=== PATIENT | female | born 1960 | race Caucasian/White ===

== ENCOUNTER 2017-06-29 18:44 | Emergency (ER) | payer BC, OTHER ==
[2017-06-29 20:29] LABS: #Basophils 0.1 thou/uL (0.0-0.2); #Eosinphils 0.5 thou/uL (0.0-0.7); #Lymphocytes 3.6 thou/uL (1.20-3.40); #Monocytes 0.6 thou/uL (0.11-0.59); %Basophils 1.5 % (0.0-1.0); %Eosinophils 4.8 % (0.0-10.0); %Lymphocytes 36.4 % (21.0-51.0); %Monocytes 6.4 % (0.0-10.0); Hematocrit 41.1 % (36.0-47.0); Mean Platelet Volume 7.7 fL (7.4-10.4); Red Blood Cell (RBC) Count 4.04 mill/uL (4.20-5.40); White Blood Cell (WBC) Count 9.9 thou/uL (4.8-10.8)
[2017-06-29 20:53] LABS: ALT (SGPT) 17 U/L (8-55); AST (SGOT) 21 U/L (5-34); Alkaline Phosphatase 84 U/L (40-150); Anion Gap 15 mmol/L (10-20); BUN (Urea Nitrogen) 15 mg/dL (9.8-20.1); Bilirubin, Total 0.2 mg/dL (0.2-1.2); Calc. Creatinine Clearance 0 mL/min (70-130); Calcium 9.6 mg/dL (7.8-10.44); Carbon Dioxide 22 mmol/L (22-29); Chloride 106 mmol/L (98-107); Estimated GFR-MDRD 82; Lipase 27 U/L (8-78); Protein, Total 7.1 g/dL (6.0-8.3)
[2017-06-29 20:57] LABS: Troponin I Less than 0.010 ng/mL (< 0.028)
--- NOTE | 2017-06-29 20:59 | CT ---
NONCONTRAST CT HEAD: Date: 06-29-17 History: Confusion after falling and hitting head. Comparison: None. FINDINGS: There is no evidence of a hemorrhage, acute infarction, mass effect or midline shift. Ventricular sy stem is normal in size, shape, and position. There is a low density focus seen in the medial right t emporal lobe likely related to a very tiny neurenteric cyst. Ventricular system is normal in size, s hape, and position. There is minimal mucosal thickening seen in the left sphenoid sinus. Calvarial structures are intact without evidence of a fracture. IMPRESSION: 1. No acute intracranial abnormalities demonstrated. 2. Minimal sinus disease. POS: [facility]
--- NOTE | 2017-06-29 21:49 | RAD ---
PORTABLE AP CHEST: Date: 06-29-17 History: Electrical shock. Comparison: 11-08-10 FINDINGS: Cardiac silhouette and pulmonary vasculature are within normal limits. There is minimal atelectasis left lung base. Lungs are otherwise clear. There has been no interval change from prior study. IMPRESSION: No acute cardiopulmonary process. POS: [facility]
== END 2017-06-29 21:54 | disposition home or self-care (01) ==
LOC: ERS 18:44
DX: T75.4XXA Electrocution, initial encounter (principal); S06.0X9A Concussion with loss of consciousness of unspecified duration, initial encounter; W18.30XA Fall on same level, unspecified, initial encounter
CPT/HCPCS: 70450; 71010; 80053; 82553; 83690; 84484; 85025; 93005

== ENCOUNTER 2017-07-03 17:59 | Emergency (ER) | payer BC, OTHER ==
[2017-07-03] MEDS ORDERED: Ondansetron HCl/PF 4 MG/2 ML Vial ONE (19:36)
[2017-07-03] MEDS ORDERED: Metoclopramide HCl 10 MG/2 ML VIAL ONE (20:07)
[2017-07-03] MEDS ORDERED: Dexamethasone 4 mg/ml Vial ONE (20:07)
[2017-07-03] MEDS ORDERED: Ketorolac Tromethamine 30 MG/ML VIAL ONE (20:07)
[2017-07-03 20:33] LABS: #Basophils 0.1 thou/uL (0.0-0.2); #Eosinphils 0.3 thou/uL (0.0-0.7); #Lymphocytes 3.4 thou/uL (1.20-3.40); #Monocytes 0.6 thou/uL (0.11-0.59); %Basophils 1.2 % (0.0-1.0); %Eosinophils 3.1 % (0.0-10.0); %Lymphocytes 32.6 % (21.0-51.0); %Monocytes 5.5 % (0.0-10.0); Hematocrit 48.5 % (36.0-47.0); Mean Platelet Volume 7.5 fL (7.4-10.4); Red Blood Cell (RBC) Count 4.77 mill/uL (4.20-5.40); White Blood Cell (WBC) Count 10.4 thou/uL (4.8-10.8)
[2017-07-03 20:39] LABS: Prothrombin Time 11.9 SEC (12.0-14.7)
[2017-07-03 20:40] LABS: PTT 28.9 SEC (22.9-36.1)
[2017-07-03 20:54] LABS: ALT (SGPT) 19 U/L (8-55); AST (SGOT) 22 U/L (5-34); Alkaline Phosphatase 96 U/L (40-150); Anion Gap 16 mmol/L (10-20); BUN (Urea Nitrogen) 19 mg/dL (9.8-20.1); Bilirubin, Total 0.2 mg/dL (0.2-1.2); CK (CPK) 88 U/L (29-168); Calc. Creatinine Clearance 0 mL/min (70-130); Calcium 10.1 mg/dL (7.8-10.44); Carbon Dioxide 25 mmol/L (22-29); Chloride 103 mmol/L (98-107); Estimated GFR-MDRD 67; Globulin 3.7 g/dL (2.4-3.5); Protein, Total 8.2 g/dL (6.0-8.3)
--- NOTE | 2017-07-03 22:32 | CT ---
EXAM: NONCONTRAST HEAD CT 07/03/17 COMPARISON: 06/29/17 HISTORY: Patient was referred by occupational health. Patient failed several neurological tests during her vi sit. Patient continues to have headache, ataxia, unsteadiness of gait. Persistent nausea. TECHNIQUE: Noncontrast head CT is performed from skull base to skull vertex. FINDINGS: No parenchymal hemorrhage. No extra-axial hematoma. No midline shift. Basilar cisterns are patent. B rain volume is age appropriate. Cortical trevizo-white matter differentiation is preserved. Ventricles and sulci are patent and symmetric. Calvarium is intact. Adequate aeration of the sinuses and mastoi d air cells. IMPRESSION: 1. No intracranial or posttraumatic sequela. No acute intracranial process. 2. No significant interval change. 3. Nonemergent brain MRI can be performed for better interrogation of the brain parenchyma, if clinically indicated. POS: [facility]
== END 2017-07-03 22:19 | disposition home or self-care (01) ==
LOC: ERS 17:59
DX: G44.309 Post-traumatic headache, unspecified, not intractable (principal); Z79.891 Long term (current) use of opiate analgesic; Z79.899 Other long term (current) drug therapy
CPT/HCPCS: 70450; 80053; 82550; 85025; 85610; 85730; 96361; 96374; 96375; J1100; J1885; J2270; J2405; J2765

== ENCOUNTER 2019-04-20 09:02 | Outpatient (CLI) | payer OTHER ==
--- NOTE | 2019-04-20 11:29 | MRI ---
MRA of the head without IV contrast 3-D reformatted imaging. DATE: 04/20/2019 12:00 AM HISTORY: Concussion COMPARISON: None FINDINGS: Right: ICA:No significant stenosis. MCA:No significant stenosis. DARLIN:No significant stenosis. TOWN CLERK:No significant stenosis. LEFT: ICA:No significant stenosis. MCA:No significant stenosis. DARLIN:No significant stenosis. TOWN CLERK:No significant stenosis. Vertebrobasilar System: The partially imaged, distal vertebral arteries reveal dominance of the right vertebral artery. No ob vious stenosis or occlusion of the visualized aspects. Basilar:No significant stenosis. IMPRESSION: No hemodynamically significant stenosis, occlusion or aneurysmal dilation.
== END 2019-04-20 09:03 | disposition home or self-care (01) ==
LOC: SCSMRI 09:02
PROVIDERS: ATTEND Family Medicine
DX: T75.4XXD Electrocution, subsequent encounter (principal); S06.0X9D Concussion with loss of consciousness of unspecified duration, subsequent encounter; S70.01XD Contusion of right hip, subsequent encounter; S80.11XD Contusion of right lower leg, subsequent encounter; S13.4XXD Sprain of ligaments of cervical spine, subsequent encounter; S76.011D Strain of muscle, fascia and tendon of right hip, subsequent encounter
CPT/HCPCS: 70544